=== PATIENT | female | born 1940 | race Caucasian/White ===

== ENCOUNTER 2016-08-28 14:37 | Outpatient (CLI) | payer MEDICARE, BC ==
[2008-03-31 12:21] VITALS: BP 131/74
[~2016-08-28 14:37] MED LIST: AMITRIPTYLINE H50 M1 PO; AMITRIPTYLINE50 MG PO; ASPIR-LOW81 MG PO; ASPIRIN E.C. 8181 MG PO; BENADRYL50 MG PO; BENTYL 20MG TAB20 MG PO; CELEXA 20MG20 MG/TAB PO; COLACE 100100 MG/CAP PO; COLESTID 1GM1 G PO; CYMBALTA30 MG PO; DILAUDID 2MG TAB2 MG PO; DILAUDID 4MG TAB4 MG PO; EMLA CREAM TOP; FENTANYL 25 MCG TOP; FENTANYL 50MCG TOP; FENTANYL 75MCG TD; FENTANYL BC; FENTANYL TR50 MCG/HR TD; FENTORA400 MCG BC; FLAGYL; FLAGYL500 MG PO; GABAPENTIN300 M1 PO; GABAPENTIN600 MG PO; GLIPIZIDE XL5 MG PO; GLUCOPHAGE XR500 M1 PO; GLUCOTROL XL5 MG/TAB PO; HYDROXYZINE PAM25 MG PO; IMODIUM 2MG CAPS2 MG PO; K-DUR 10 MEQ T10 MEQ PO; K-DUR 1010 MEQ PO; KLOR-CON 1010 MEQ PO; KLOR-CON M2020 MEQ PO; LANTUS SOLOS100 U/ML SQ; LASIX 40MG TABL40 MG PO; LASIX 80MG TABL80 MG PO; LASIX40 MG PO; LEVAQUIN 750MG750 M1 PO; LEVEMIR100 U/ML SC; LEVOTHYROXIN0.112 MG PO; LEVOXYL0.088 MG PO; MAGNESIUM250 M1 PO; METFORMIN HCL500 M1 PO; MINERAL OIL 1 ML1 ML; MONODOX100 PO; MULTIVITAMIN1 CTB PO; NEURONTIN600 MG/TAB PO; PHILLIPS M400 MG/51 PO; POTASSIUM CH2 MEQ/ML PO; PRAVACHOL 40MG40 MG PO; PREMARIN 0.60.625 MG PO; PREMARIN0.45 MG PO; PRILOSEC 20MG20 MG PO; SIMVASTATIN40 MG PO; TYLENOL 325MG325 MG PO; VOLTAREN GEL 1%1 TU TP; ZESTRIL 10MG10 MG PO; ZETIA10 MG PO; ZOVIRAX400 MG PO; [UNRECOGNIZED DRUG - OTHER] OD; [UNRECOGNIZED DRUG - OTHER] OP
[2016-08-28 15:28] LABS: HEMATOCRIT 38.5 % (37.0-47.0); HEMOGLOBIN 12.4 g/dl (12.5-16.0); MEAN CELL VOLUME 101 fl (80.0-100.0); MEAN CORPUSCULAR HEMOGLOBIN 33 pg (27.0-31.0); MEAN CORPUSCULAR HGB CONC 32 g/dl (33.0-37.0); MEAN PLATELET VOLUME 9.5 fl (7.4-10.4); PLATELET COUNT 262 K/mm3 (130-400); RED BLOOD COUNT 3.82 M/mm3 (4.10-5.30); REDCELL DISTRIBUTION WIDTH-CV 14.4 % (11.5-14.5); WHITE BLOOD COUNT 11.8 K/mm3 (4.8-10.8)
[2016-08-28 15:43] LABS: CALCIUM 8.7 mg/dL (8.4-10.2); CREATININE, serum 2.66 mg/dL (0.52-1.25); POTASSIUM 5.1 mmol/L (3.4-5.0)
[2016-08-28 15:45] VITALS: BP 8/50; BP 90/52; PULSE 107; PULSE 99; TEMP 98.1
[2016-08-28] MEDS ORDERED: NEURONTIN600 MG/TAB PO (15:57)
[2016-08-28] MEDS ORDERED: SYNTHROID0.1 MG/TAB PO (16:00)
[2016-08-28] MEDS ORDERED: LOMOTIL 0.025 M1 TAB PO (16:03)
[2016-08-28 17:50] VITALS: BP 90/52; PULSE 99
== END 2016-08-28 18:24 | disposition home or self-care (01) ==
LOC: EUO 14:37
PROVIDERS: Internal Medicine
DX: Z01.89 Encounter for other specified special examinations (principal)
CPT/HCPCS: J1644; J7030

== ENCOUNTER → 2017-01-16 | Outpatient (CLI) | payer MEDICARE, BC ==
[~2017-01-16] MED LIST changes: +LOMOTIL 0.025 M1 TAB PO; +SYNTHROID0.1 MG/TAB PO
== END ==
LOC: MC.RAD 13:12
DX: Z12.31 Encounter for screening mammogram for malignant neoplasm of breast (principal)

== ENCOUNTER → 2018-03-04 | Outpatient (CLI) | payer MEDICARE, BC | LOC: MC.RAD 14:28 | DX: Z12.31 Encounter for screening mammogram for malignant neoplasm of breast (principal); R92.0 Mammographic microcalcification found on diagnostic imaging of breast ==

== ENCOUNTER → 2018-03-11 | Outpatient (CLI) | payer MEDICARE, BC | LOC: MC.RAD 13:24 | DX: R92.0 Mammographic microcalcification found on diagnostic imaging of breast (principal) ==

== ENCOUNTER → 2018-03-17 | Outpatient (CLI) | payer MEDICARE, BC | LOC: MC.RAD 08:16 | DX: R92.0 Mammographic microcalcification found on diagnostic imaging of breast (principal); Z98.82 Breast implant status ==

== ENCOUNTER → 2018-09-16 | Outpatient (CLI) | payer MEDICARE, BC | LOC: MC.RAD 14:00 | DX: R92.0 Mammographic microcalcification found on diagnostic imaging of breast (principal); Z98.890 Other specified postprocedural states | CPT/HCPCS: G0279 ==